=== PATIENT | male | born 1950 | race Caucasian/White ===

== ENCOUNTER 2023-01-13 10:16 | Outpatient (CLI) | payer OTHER, SELFPAY | END 2023-01-13 10:17 | disposition home or self-care (01) | PROVIDERS: Visit Provider Physician Assistant Medical | DX: R79.89 Other specified abnormal findings of blood chemistry (principal); I10 Essential (primary) hypertension; E55.9 Vitamin D deficiency, unspecified; E78.5 Hyperlipidemia, unspecified; E53.8 Deficiency of other specified B group vitamins; R53.1 Weakness | CPT/HCPCS: 80053; 80061; 82306; 82607; 84443 ==

== ENCOUNTER 2023-05-24 09:00 | Outpatient (CLI) | payer OTHER, SELFPAY | END 2023-05-24 09:01 | disposition home or self-care (01) | LOC: NFLDREF 05-25 10:29 | PROVIDERS: PCP Physician Assistant Medical; Visit Provider Physician Assistant Medical | DX: E53.8 Deficiency of other specified B group vitamins (principal); R79.89 Other specified abnormal findings of blood chemistry | CPT/HCPCS: 82306; 82607 ==

== ENCOUNTER 2024-03-06 08:50 | Outpatient (CLI) | payer OTHER, SELFPAY | END 2024-03-06 08:51 | disposition home or self-care (01) | LOC: NFLDREF 03-07 06:22 | PROVIDERS: PCP Physician Assistant Medical; Referring Provider Physician Assistant Medical; Visit Provider Physician Assistant Medical | DX: I10 Essential (primary) hypertension (principal); E78.2 Mixed hyperlipidemia; Z12.5 Encounter for screening for malignant neoplasm of prostate | CPT/HCPCS: 80053; 80061; G0103 ==

== ENCOUNTER 2024-04-05 08:21 | Outpatient (CLI) | payer OTHER, SELFPAY | END 2024-04-05 08:22 | disposition home or self-care (01) | LOC: NFLDREF 04-09 13:44 | PROVIDERS: PCP Physician Assistant Medical; Referring Provider Physician Assistant Medical; Visit Provider Physician Assistant Medical | DX: N18.9 Chronic kidney disease, unspecified (principal); R79.89 Other specified abnormal findings of blood chemistry | CPT/HCPCS: 82306 ==

== ENCOUNTER 2024-10-17 08:15 | Outpatient (RCR) | payer OTHER, SELFPAY ==
--- NOTE | 2024-06-06 09:37 | PT.OPE ---
PT [facility] PT [facility] Out[facility] Eval Start: 06/06/24 09:02 Freq: Status: Active Protocol: Document 06/06/24 09:02 TANYA (Rec: 06/06/24 09:34 TANYA [id number]) E-signed By Jalil Quiros, PT, ATC Physical Therapy Outpatient Evaluation Insurance Information Insurance Name Medicare B Medical Diagnosis M54.50 acute low back pain, unspecified Treating Diagnosis R and L low back pain Movement difficulty Referring MD Bhaskar Morton PA-C Subjective Preferred Name Terry Subjective Complains of R and L sided lower back pain that occurs with transfers, sustained standing and walking. Symptoms began 1 1/2 months ago following a day of furniture moving. No pain while sitting. Limited improvement since. Has been using a lumbar corset and limiting his activity to handle the pain. No LE paresthesia reported but he does recognize diminished LE strength over the past 3 years . 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 He does not report any falls or loss of balance with the back pain. Pain Comments Low 0/10 High 6-7/10 Date of Last Physician Visit 05/29/24 Current Work Status Retired Precautions Weight Bearing Status Full Weight Bearing Therapy Limitations/Systems Review Not Limited Objective Range of Motion Standing trunk ROM WNL's and pain free, some discomfort in LB with extension out of flexion. Strength LE strength 5/5 all patterns- joints bilaterally Palpation Moderate tenderness-spasm in the lumbar paraspinals on both the R and L sides, just above SI joint. No gluteal muscle tenderness or spasm. Tender to Post-anterior vertebral joint mobilization L 3-5 and SI joints. Balance & Gait Limited trunk or hip rotation during gait pattern. Posture Decreased lumbar lordosis, slight trunk flexion in standing. Other/Pertinent Objective SLR and Slump test negative for disc pressure. Assessment Assessment/Impression Terry is a pleasant 73 year old gentleman who appears to be experiencing extended lower back muscle spasms and related vertebral hypomobility following a strain occurring during a day of furniture moving 1 1/2 months ago. Symptoms limit his comfort for ADL's including transfers from sit to stand, extended standing and walking distances exceeding ten minutes. Skilled PT is recommended to address the pain, compensated daily performance, lumbar muscle spasms and resulting joint tightness. Current symptoms affect his ability for daily living, ultimately exercise Primary Functional Limitations Toilet transfers Standing to prepare meals Walking to go shopping Bed mobility Plan of Care Rehabilitation Potential Good Physical Therapy Goals 1.Independent and correct performance his home ex program. 2.Able to transfer without compensation or lbp > 2. 3.To stand durations up to ten minutes allowing preparation of meals. 4.Ability to walk durations exceeding ten minutes allowing comfort and stability while shopping. Coordination/Communication With Referral Source Treatment Plan/Direct Interventions Joint Mobilization,Manual Therapy,Self-Care/Home Management,Therapeutic Activities,Therapeutic Exercises,Ultrasound Frequency/Duration 1-2x per week 3-8 weeks Patient Will Be Discharged From Therapy Independent w/HEP, Independently Progressing Evaluation Billing Untimed Code Treatment Minutes 30 PT Eval No Charge No Complexity Low Certification Information Provider Signature Required Yes Provider Signature Shows Agreement With POC & Medical Necessity Physician NPI Number Write NPI# Here Physician Comment/Change : Physician Signature & Date Requested Please Sign/Date Here
--- NOTE | 2024-09-05 10:32 | PT.OPDN ---
PT [facility] Daily Note PT [facility] Out[facility] Daily Note Start: 06/06/24 09:02 Freq: Status: Active Protocol: Document 09/05/24 10:04 TANYA (Rec: 09/05/24 10:29 TANYA [id number]) E-signed By Jalil Quiros, PT, ATC PT OP Daily Progress Note Visit Information Note Type Re-Evaluation Visit Number 10 Physician Authorized Visits eval and treat Insurance Information Recert Due Date 09/06/24 Insurance Name Medicare B Medical Diagnosis M54.50 acute low back pain, unspecified Treating Diagnosis R and L low back pain Movement difficulty Referring MD Bhaskar Morton PA-C Subjective Preferred Name Terry Subjective Returns to therapy following a 5 week absence-vacation and awaiting insurance change. Currently has [employer] insurance . Continues having lower back symptoms on R and L sides after extended trunk flexion positions-over spotter or sink. Lower extremity weakness -fatigue also occurs with extended standing or walking. Always better with shopping cart. Using back brace as needed for activities he knows will cause back soreness. Wishes to continue therapy additionally as he felt it was making some improvement with his LE strength and ultimately his stamina. Pain Comments Low 0/10 High 3-4/10 with sustained flexion (bending over at sink) . Previously 03/09 mid summer. Date of Last Physician Visit 05/29/24 Precautions Weight Bearing Status Full Weight Bearing Home Exercise Home Exercise Comments Loom [employer] [id number] Objective Other/Pertinent Objective SLR and Slump test negative for disc pressure. Patient Instructed in Risks/Benefits Yes Therapeutic Exercise Therapeutic Exercise: To Restore NuStep x 10 min UE + LE Functional Status Back Ext machine 2x15 70# Rotary trunk 2x10 3.5 plates R and L Leg press 2x12 50# Bridge 2x10 Situps 45 degree table 2x10 Supine trunk rotation, orange band 2x10 R and L Ham curl machine 20# 2x12 Clam shells green tband 2x10 R and L Sit to stand on foam, knees at height of butt 3x5 Sled push/pull 40# 2 sets of 50 foot ponce Manual Therapy Techniques Manual Therapy Techniques MET for distal lumbar rotation , R and L performance. Manual passive stretching to LE's, ITB, glut.s and lower back. Billing Units Canalith Repositioning Per Day Units 1 Assessment/Impression Assessment/Impression Ultimately, the therapy has provided improved strength and mobility for Terry and reduced both freq and intensity of lower back pain. He was not able to complete the course of therapy in the care plan because of the need to change insurance companies. He feels his time away has caused some return of back symptoms and decreased ability for standing /walking. I do believe his leg weakness is related to advancing degenerative changes in his lower back (stenosis) It would be prudent for him to use his legs more with tasks requiring trunk flexion and a walker or shopping cart with extended distances. Additionally, more supervised exercise is recommended to further develop abdominal strength, core stability and LE conditioning. Plan of Care Physical Therapy Goals 1.Independent and correct performance his home ex program. 2.Able to transfer without compensation or lbp > 12/10. 3.To stand durations up to ten minutes allowing preparation of meals. 4.Ability to walk durations exceeding ten minutes allowing comfort and stability while shopping. Daily Plan of Care Continue per POC Daily Plan of Care Comments Request to resume therapy an additional 6-8 weeks. Recertification Information Initial Certification Date 06/06/24 Recertification Start Date 09/10/24 Recertification Due Date 12/11/24 Reasons to Continue Skilled Therapy Lower back pain limiting standing and walking durations . Unstable transfers LE weakness Rehabilitation Potential good Continued Plan of Care and Interventions Therapeutic exercise-strength, stabilization, endurance training Neuromuscular training-balance , stability Manual therapy-stretching of trunk,hips and LE muscles. Provider Signature Shows Agreement With POC & Medical Necessity Physician Comment/Change Comment or Changes Physician NPI Number #
== END 2024-10-17 10:41 | disposition home or self-care (01) ==
PROVIDERS: PCP Physician Assistant Medical; Visit Provider Physician Assistant Medical
DX: M54.50 Low back pain, unspecified (principal); R29.898 Other symptoms and signs involving the musculoskeletal system; M62.81 Muscle weakness (generalized); Z51.89 Encounter for other specified aftercare
CPT/HCPCS: 97035; 97110; 97140; 97161